=== PATIENT | female | born 2005 | race Caucasian/White ===

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

== ENCOUNTER 2023-02-06 14:42 | Emergency (ER) | payer OTHER ==
[~2023-02-06] VITALS: Ht 160 cm; Wt 49.9 kg
== END 2023-02-06 22:19 | disposition home or self-care (01) ==
LOC: ER 14:42 → EMR PED 15:09 → ER 15:09 → EMR PED 22:19
DX: S63.501A Unspecified sprain of right wrist, initial encounter (principal); W18.30XA Fall on same level, unspecified, initial encounter; Y93.9 Activity, unspecified; Y92.002 Bathroom of unspecified non-institutional (private) residence as the place of occurrence of the external cause; Y99.9 Unspecified external cause status; Z88.0 Allergy status to penicillin; Z91.010 Allergy to peanuts

== ENCOUNTER 2023-04-21 13:00 | Emergency (ER) | payer OTHER ==
[~2023-04-21] VITALS: Ht 154.9 cm; Wt 46.7 kg
== END 2023-04-21 18:39 | disposition home or self-care (01) ==
LOC: EMR PED 13:00 → ER 13:00 → EMR PED 16:59
DX: R22.0 Localized swelling, mass and lump, head (principal); Z98.890 Other specified postprocedural states; Z88.0 Allergy status to penicillin; Z91.018 Allergy to other foods; Z91.010 Allergy to peanuts

== ENCOUNTER 2023-07-31 05:59 | Emergency (ER) | payer OTHER ==
[~2023-07-31] VITALS: Ht 66 cm; Wt 47.6 kg
[2023-07-31] MEDS ORDERED: METHYLPREDNISOLONE SOD SUCC 40 MG VIAL IM STA (07:04)
[2023-07-31] MEDS ORDERED: DIPHENHYDRAMINE HCL 50 MG/ML VIAL 1ML IM STA (07:05)
== END 2023-07-31 09:01 | disposition home or self-care (01) ==
LOC: ER 05:59 → EMR PED 06:04 → ER 06:04 → EMR PED 09:01
DX: T78.1XXA Other adverse food reactions, not elsewhere classified, initial encounter (principal); Z88.0 Allergy status to penicillin; Z91.018 Allergy to other foods; Z91.010 Allergy to peanuts; X58.XXXA Exposure to other specified factors, initial encounter

== ENCOUNTER 2024-03-13 04:56 | Emergency (ER) | payer OTHER ==
[~2024-03-13] VITALS: Ht 157.5 cm; Wt 49.0 kg
[2024-03-13] MEDS ORDERED: ALBUTEROL SULFATE 3 ML/2.5 MG AMPUL.NEB IH ONE (08:15)
[2024-03-13 08:44] LABS: HEMATOCRIT 34.7 % (36.0-45.00); HEMOGLOBIN 12.2 g/dL (12.0-15.00); MEAN CELL VOLUME 83.7 fL (80.00-100.00); MEAN CORPUSCULAR HEMOGLOBIN 29.4 pg (27.00-32.0); MEAN CORPUSCULAR HGB CONC 35.1 g/dl (32.0-36.0); PLATELET COUNT 154 K/uL (150-450); RED BLOOD COUNT 4.15 M/uL (4.00-6.00); RED CELL DISTRIBUTION WIDTH 13.1 % (11.5-14.5)
[2024-03-13 09:12] LABS: ALBUMIN 4.1 gm/dL (3.4-5.0); BILIRUBIN TOTAL 0.27 mg/dL (0.3-1.2); CALCIUM 9.3 mg/dL (8.5-10.1); CREATININE SERUM 0.83 mg/dL (0.55-1.02); GFR 87.64; POTASSIUM 3.09 mEq/L (3.5-5.1); TOTAL PROTEIN 8.1 gm/dL (6.4-8.2)
== END 2024-03-13 11:16 | disposition home or self-care (01) ==
LOC: ER 04:58 → EMR PED 05:01 → ER 05:01 → EMR PED 11:16
PROVIDERS: Emergency Medicine Pediatric Emergency Medicine
DX: J10.1 Influenza due to other identified influenza virus with other respiratory manifestations (principal); Z88.0 Allergy status to penicillin; Z91.018 Allergy to other foods; J45.909 Unspecified asthma, uncomplicated; Z20.822 Contact with and (suspected) exposure to COVID-19

== ENCOUNTER 2024-07-05 16:32 | Emergency (ER) | payer OTHER ==
[~2024-07-05] VITALS: Ht 157.5 cm; Wt 50.8 kg
[2024-07-05] MEDS ORDERED: FAMOTIDINE/PF 20 MG/2 ML VIAL IV PUSH STA (17:31)
[2024-07-05] MEDS ORDERED: ONDANSETRON HCL 2 MG/ML VIAL IV STA (17:31)
[2024-07-05 17:57] LABS: HEMATOCRIT 39.8 % (36.0-45.00); HEMOGLOBIN 13.2 g/dL (12.0-15.00); MEAN CELL VOLUME 82.6 fL (80.00-100.00); MEAN CORPUSCULAR HEMOGLOBIN 27.4 pg (27.00-32.0); MEAN CORPUSCULAR HGB CONC 33.2 g/dl (32.0-36.0); PLATELET COUNT 185 K/uL (150-450); RED BLOOD COUNT 4.82 M/uL (4.00-6.00); RED CELL DISTRIBUTION WIDTH 12.9 % (11.5-14.5)
[2024-07-05 18:22] LABS: ALBUMIN 4.5 gm/dL (3.4-5.0); BILIRUBIN TOTAL 0.43 mg/dL (0.3-1.2); CALCIUM 9.1 mg/dL (8.5-10.1); CREATININE SERUM 0.77 mg/dL (0.55-1.02); GFR 95.57; GLOBULINA 4.4 G/DL (2.4-3.5); POTASSIUM 3.54 mEq/L (3.5-5.1); TOTAL PROTEIN 8.9 gm/dL (6.4-8.2)
[2024-07-05 18:39] LABS: PH,URINE 6.5 (5.0-8.0); URINE APPEARANCE Clear; URINE BILIRRUBIN Negative (NEGATIVE); URINE BLOOD Negative; URINE COLOR Yellow; URINE GLUCOSE Negative (NEGATIVE); URINE KETONE Negative (NEGATIVE); URINE LEUKOCYTE Trace; URINE NITRATE Negative; URINE PROTEIN Negative (NEGATIVE); URINE UROBILINOGEN 0.2 E.U./dl
[2024-07-05 18:45] LABS: URINE BACTERIA 983.9 uL (0.0-1933); URINE EPITHELIAL CELLS 10.5 uL (0.0-38.8); URINE WBC 17.8 uL (0.0-23.2)
[2024-07-05 18:46] LABS: URINE CAST 0.44 uL (0.0-1.40); URINE RBC 1.3 uL (0.0-20.8)
== END 2024-07-05 22:47 | disposition home or self-care (01) ==
LOC: ER 16:35 → EMR PED 16:35
DX: R10.9 Unspecified abdominal pain (principal); Z91.030 Bee allergy status; Z91.018 Allergy to other foods; Z88.0 Allergy status to penicillin; Z20.822 Contact with and (suspected) exposure to COVID-19
CPT/HCPCS: 36415; 74177; 96365; 99284; J2405; J3490; Q9965

== ENCOUNTER 2024-08-01 13:09 | Emergency (ER) | payer OTHER ==
[~2024-08-01] VITALS: Ht 157.5 cm; Wt 49.0 kg
[2024-08-01] MEDS ORDERED: CLEOCIN HCL300 MG PO (14:45)
== END 2024-08-01 14:51 | disposition home or self-care (01) ==
LOC: EMR PED 13:10 → ER 13:10 → EMR PED 14:33
DX: L05.91 Pilonidal cyst without abscess (principal); Z88.0 Allergy status to penicillin; Z91.018 Allergy to other foods; Z91.030 Bee allergy status

== ENCOUNTER 2025-02-03 18:50 | Emergency (ER) | payer OTHER ==
[~2025-02-03] VITALS: Ht 157.5 cm; Wt 47.6 kg
[~2025-02-03 18:50] MED LIST changes: +CLEOCIN HCL300 MG PO
[2025-02-03] MEDS ORDERED: ORPHENADRINE CITRATE 30 MG/ML AMPUL IM ONE (20:15)
[2025-02-03] MEDS ORDERED: KETOROLAC TROMETHAMINE 30 MG VIAL IM ONE (20:15)
[2025-02-03] MEDS ORDERED: ORPHENADRINE CITRATE 30 MG/ML AMPUL ONE (20:23)
[2025-02-03] MEDS ORDERED: KETOROLAC TROMETHAMINE 30 MG VIAL ONE (20:23)
[2025-02-03] MEDS ORDERED: NORFLEX100MG PO (21:25)
[2025-02-03] MEDS ORDERED: DICLOFENAC SODI50 MG PO (21:25)
== END 2025-02-03 22:42 ==
LOC: ER 18:51
DX: T14.8XXA Other injury of unspecified body region, initial encounter (principal); V49.9XXA Car occupant (driver) (passenger) injured in unspecified traffic accident, initial encounter; Y93.89 Activity, other specified; Y92.413 State road as the place of occurrence of the external cause; Y99.9 Unspecified external cause status; Z88.0 Allergy status to penicillin; Z87.09 Personal history of other diseases of the respiratory system; Z91.038 Other insect allergy status; Z91.018 Allergy to other foods; Z91.010 Allergy to peanuts

== ENCOUNTER 2025-02-19 09:40 | Emergency (ER) | payer OTHER ==
[~2025-02-19] VITALS: Ht 157.5 cm; Wt 47.6 kg
[~2025-02-19 09:40] MED LIST changes: +DICLOFENAC SODI50 MG PO; +NORFLEX100MG PO
[2025-02-19] MEDS ORDERED: 0.9 % SODIUM CHLORIDE 1,000 ML IV SCH (11:00)
[2025-02-19 11:26] LABS: BASO % 0.5 % (0.1-1.2); EOS # 0.15 (0.04-0.54); EOS % 1.6 % (0.7-7.0); LYMPH # 0.94 (1.18-3.74); LYMPH % 10.1 % (19.3-53.1); MEAN PLATELET VOLUME 10.50 fl (9.4-12.4); MONO # 0.47 (0.24-0.82); MONO % 5.1 % (4.7-12.5); NEUT # 7.62 (1.56-6.13); NEUT % 82.3 % (34.0-71.1); RED CELL DISTRIBUTION WIDTH 12.5 % (11.6-14.4)
[2025-02-19 11:52] LABS: INR 1.13
[2025-02-19 12:29] LABS: URINE APPEARANCE Clear; URINE BILIRRUBIN Negative (NEGATIVE); URINE BLOOD Negative; URINE COLOR Yellow; URINE GLUCOSE Negative (NEGATIVE); URINE KETONE Trace (NEGATIVE); URINE LEUKOCYTE Small; URINE NITRATE Negative; URINE PROTEIN Trace (NEGATIVE); URINE UROBILINOGEN 0.2 E.U./dl
[2025-02-19 12:30] LABS: URINE BACTERIA 2206.7 uL (0.0-1933); URINE EPITHELIAL CELLS 111.8 uL (0.0-38.8); URINE RBC 4.1 uL (0.0-20.8); URINE WBC 76.1 uL (0.0-23.2)
[2025-02-19 12:36] LABS: ALT/SGPT 17 U/L (12-78); AST/SGOT 11 U/L (15-37); BILIRUBIN TOTAL 0.53 mg/dL (0.3-1.2); BUN CREA RATIO 14 (7.0-25.0); CREATININE SERUM 0.84 mg/dL (0.55-1.02); GFR 85.59; GLOBULINA 3.8 G/DL (2.4-3.5); GLUCOSE FASTING 119 mg/dL (65-100); OSMOLALITY SERUM 284 MOSM/KG (275-295); TSH 1.870 uIU/mL (0.358-3.74)
[2025-02-19 13:05] LABS: URINE CAST 0.87 uL (0.0-1.40); URINE YEAST FEW /hpf
[2025-02-19] MEDS ORDERED: MACROBID 100 M100 MG PO (15:49)
== END 2025-02-19 17:01 | disposition home or self-care (01) ==
LOC: ER 09:40
DX: R55 Syncope and collapse (principal); Z88.0 Allergy status to penicillin; Z91.018 Allergy to other foods; Z91.030 Bee allergy status; J45.909 Unspecified asthma, uncomplicated; D64.89 Other specified anemias; N39.0 Urinary tract infection, site not specified